=== PATIENT | female | born 1990 | race Caucasian/White ===

== ENCOUNTER 2018-02-01 22:22 | Emergency (ER) | payer BC ==
--- NOTE | 2018-02-01 22:41 | EDM.PDOC ---
ED HPI GENERAL MEDICAL PROBLEM - General Chief Complaint: Lower Extremity Injury/Pain Stated Complaint: POSS ANKLE INJURY Time Seen by Provider: 02/01/18 22:28 Source of Information: Reports: Patient History Limitations: Reports: No Limitations - History of Present Illness INITIAL COMMENTS - FREE TEXT/NARRATIVE: 27-year-old female presents for evaluation and treatment of an injury to the right ankle. Patient reports that she was at softball this evening. States that she was running the bases when she stepped on the base and inverted her ankle. Primarily complaining of pain to the right lateral malleolus as well as swelling. States it initially felt numb and tingly but this has resolved. Currently having some discomfort but denies any pain medication. She states she felt a pop when the injury occurred. Onset: Today, Sudden Location: Reports: Lower Extremity, Right Right Ankle Pain Score (Numeric/FACES): 1 - Related Data Allergies Allergy/AdvReac Type Severity Reaction Status Date / Time No Known Allergies Allergy Verified 05/07/14 07:42 Home Meds: Home Meds Acetaminophen/HYDROcodone [[place] 325-5 MG] 1 tab PO Q6H PRN #7 tablet 02/01/18 [ Rx] Past Medical History HEENT History: Reports: Impaired Vision Other HEENT History: wears corrective lenses [employer] History: Reports: Polycystic Ovaries - Past Surgical History HEENT Surgical History: Reports: None Social & Family History - Tobacco Use Smoking Status *Q: Never Smoker - Caffeine Use Caffeine Use: Reports: Soda - Recreational Drug Use Recreational Drug Use: No Review of Systems - Review of Systems Review Of Systems: See Below Musculoskeletal: Reports: Joint Pain (right ankle), Joint Swelling (right lateral ankle) Skin: Denies: Pruritis, Erythema, Wound Neurological: Denies: Numbness (initally now resolved), Tingling (initally now resolved) ED EXAM, GENERAL - Physical Exam Exam: See Below Exam Limited By: No Limitations General Appearance: Alert, WD/WN, No Apparent Distress Respiratory/Chest: No Respiratory Distress Cardiovascular: Normal Peripheral Pulses, Regular Rate, Rhythm Peripheral Pulses: 3+: Posterior Tibial (L), Posterior Tibial (R), Dorsalis Pedis (L), Dorsalis Pedis (R) Extremities: Normal Capillary Refill, Joint Swelling (right lateral malleolus), Other (right lateral malleolus both proximal and distal tenderness to palpation ; no tenderness across the dorsal right foot). No: Increased Warmth, Redness Neurological: Alert, Oriented, Normal Cognition Psychiatric: Normal Affect, Normal Mood Skin Exam: Warm, Dry, Normal Color. No: Ecchymosis, Increased Warmth Course - Vital Signs Last Recorded V/S: Last Vital Signs Temp 97.9 F 02/01/18 22:27 Pulse 105 H 02/01/18 22:27 Resp 18 02/01/18 22:27 BP 129/86 02/01/18 22:27 Pulse Ox 99 02/01/18 22:27 - Orders/Labs/Meds Orders: Active Orders 24 hr Category Date Time Status Ankle Min 3V Rt [CR] Stat Exams 02/01/18 22:35 Ordered Meds: Medications Discontinued Medications Generic Name Dose Route Start Last Admin Trade Name Freq PRN Reason Stop Dose Admin Hydrocodone Bitart/Acetaminophen 1 tab 02/01/18 22:53 02/01/18 22:59 [place] 325-5 Mg PO 02/01/18 22:54 1 tab ONETIME ONE Administration - Radiology Interpretation Free Text/Narrative:: X-ray of the right ankle shows no acute fractures or dislocations. Reviewed by myself and Dr. Wilkins. - Re-Assessments/Exams Free Text/Narrative Re-Assessment/Exam: 02/01/18 22:55 I reviewed the x-ray results with the patient. Reports that the pain is worsening. I will give her [place] here in the ED tonight. Follow-up with orthopedics within 1 week For recheck of the ankle sprain. She was advised it is possible she could have a ligamentous injury. Follow-up with ortho for further evaluation. Offered splint vs. Frankie bandage. She would like to use an FRANKIE bandage and crutches. Discharge instructions as documented. Departure - Departure Time of Disposition: 22:56 Disposition: Home, Self-Care 01 Condition: Fair Clinical Impression: Right ankle sprain - Discharge Information Prescriptions: Acetaminophen/HYDROcodone [[place] 325-5 MG] 1 tab PO Q6H PRN #7 tablet PRN Reason: Pain Referrals: PCP,None [Primary Care Provider] - Lazarus Acevedo MD [Physician] - Forms: ED Department Discharge Additional Instructions: Use the crutches and Frankie bandage at all time for rest and for compression. Off the foot 1 week until seen by orthopedics. Follow-up with orthopedics within [address] Acevedo at [facility]. Call [phone] to schedule with him. [id number] Tylenol or Motrin seen for pain relief. Do not take more than 4 g of Tylenol from all sources in 1 day. Don't take more than 3200 mg of ibuprofen from all sources in 1 day. For pain not relieved by Tylenol or Motrin you may take [place] one tablet every 6 hours. [place] is habit-forming, take as few of these as needed to control your pain. You were given medication ER that can affect you ability to drive and operate machinery. Do not drive or operate machinery within 12 hours of taking prescription narcotic pain medication. Ice the ankle 4 to 5 times a day for 10-15 minutes. Elevate, as you able to to help with the swelling. Please return the ER if your symptoms change or worsen. - My Orders Last 24 Hours: My Active Orders 02/01/18 22:35 Ankle Min 3V Rt [CR] Stat - Assessment/Plan Last 24 Hours: My Active Orders 02/01/18 22:35 Ankle Min 3V Rt [CR] Stat
[2018-02-01] MEDS ORDERED: Acetaminophen/HYDROcodone 325-5 MG Tab PO ONE (22:53)
--- NOTE | 2018-02-02 07:01 | CR ---
Right ankle: Four views of the right ankle were obtained. Comparison: No previous study. Soft tissue swelling is identified. Ankle mortise is symmetric. No fracture, dislocation or other bony abnormality is seen. Impression: 1. Soft tissue swelling. No bony abnormality is identified on right ankle exam. Diagnostic code #2
== END 2018-02-01 23:05 | disposition home or self-care (01) ==
LOC: JD.ED 22:22
DX: S93.401A Sprain of unspecified ligament of right ankle, initial encounter (principal); X50.9XXA Other and unspecified overexertion or strenuous movements or postures, initial encounter; Y93.64 Activity, baseball
CPT/HCPCS: 73610; 99283; A9270

== ENCOUNTER 2021-01-12 04:56 | Inpatient (IN) | payer OTHER ==
--- NOTE | 2021-01-11 21:40 | PCM.LDHP ---
L&D History of Present Illness - General Date of Service: 01/12/21 Admit Problem/Dx: Admission Diagnosis/Problem Admission Diagnosis/Problem 01/11/21 21:31 Elvira is a 30-year-old 1 para 0 white female admitted at 39-4/7 weeks gestational age with an BENJAMIN of 01/15/2021 for an attempt at external cephalic version with possible induction of labor if version is successful and a primary section if version is unsuccessful. Source of Information: Patient History Limitations: Reports: No Limitations - History of Present Illness Introduction:: Elvira is a 30-year-old 1 para 0 white female admitted at 39-4/7 weeks gestational age with an BENJAMIN of 01/15/2021 for an attempt at external cephalic version with possible induction of labor if version is successful and a primary section if version is unsuccessful. The procedure, risk, benefits, limitations, follow-up and alternatives of care including vaginal breech de livery and primary section discussed in detail with the patient. She appears understand and wished to proceed with an attempt at version. 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 24 to 26 days. LMP 04/10/2020 was certain. Not using any control at the time of conception. She denies any STIs or abnormal Pap smears. course: Patient was seen early in the and ultrasound correlated very well with her dates. She has had 3 other ultrasounds that support her LMP dating. Initial anatomy showed some mild renal concerns but these resolved with time. She is group B strep negative. Her blood is a negative. Patient declined prequel noninvasive screen. She plans to breast-feed. Patient's first visit was very early in . She w as seen on a regular basis. She made appropriate weight gain from approximately 208.8 pounds up to 241.2 pounds. Her blood pressure and vital signs were stable throughout the course. Her fundal height growth was appropriate. Laboratory testing shows blood to be A negative with a negative antibody screen. blood type is O- therefore patient not a candidate for RhoGam. Her first laboratory testing showed hemoglobin of 13.9 platelets 334,000. HIV, hepatitis B, chlamydia and gonorrhea assays were all negative. Second trimester labs showed hemoglobin 12.8 with platelets of 305,000. Her 1 hour GTT is 126normal. Group B strep screen was negative. Allergies: Seasonal allergies environmental allergies. No drug related allergies noted. Medications: 1. vitamins 1 p.o. daily Past medical history: Unremarkable Past surgical history: 1. Tailbone surgery with skin grafting sounds like a pilonidal cyst. Patient unsure. 2. [place] tooth extraction Family history: Father and when patient was age 6. Cause of unknown. Mother is alive but with hypertension. 3 brothers 1 sister is alive and well. Maternal grandmother secondary to blood clots. Maternal grandfather secondary to Parkinson's disease. Paternal grandmother secondary to Alzheimer's. Paternal grandfather cause unknown. No anesthesia, bleeding, blood clotting problems noted in the family. Social history: Patient is . is [place]. Patient is a college graduate works in [employer]. She does not use any significant also alcohol, drugs or tobacco. She and her live in [place]. Review of systems: In general patient has no complaints. Baby's been active. On last evaluation clinic she is noted to have breech presenting child and she notes that she is getting kicked more in the lower part of her abdomen. Skin: Negative Lungs: No infectious symptoms or shortness of breath Cardiovascular: No chest pain or exercise intolerance Breasts: No lumps, changes in size, pain, dimpling, discharge or axillary or supraclavicular concerns. Changes associated noted. GI: Negative : changes. Musculoskeletal: Negative Neurological: Negative In general the patient is well-developed, well-nourished, pleasant female of stated age in no acute distress. Patient's weight gain has been from 208.8 up to 241.2 pounds. Vital signs been stable. Fundal height growth has been normal. Skin is warm dry without lesions. HEENT, neck and back within normal limits. Lungs are clear with good breath sounds in all lung [place]. Cardiovascular exam shows regular and rhythm without murmurs. Breast exam was done at first annual visit and is not repeated at this time as i t was normal at that time. Patient plans to breast-feed. Abdomen is protuberant with . Fundal height consistent with term . Genital exam on last evaluation shows cervix to be 2 cm, 5% effaced, midposition, soft, -3 station, breech presentation. Extremities and neurological exam are grossly within normal limits. - Related Data Allergies/Adverse Reactions: Allergies Allergy/AdvReac Type Severity Reaction Status Date / Time No Known Allergies Allergy Verified 05/07/14 07:42 Home Medications: Home Meds Calcium Carbonate [Calcium] 500 mg PO DAILY 01/09/21 [History] Pnv No.95/Ferrous Fum/Folic AC [ Tablet] 1 each PO DAILY 01/09/21 [History] Past Medical History HEENT History: Reports: Impaired Vision Other HEENT History: wears corrective lenses LEATHER SCRUBBER History: Reports: Polycystic Ovaries - Past Surgical History HEENT Surgical History: Reports: None Social & Family History - Caffeine Use Caffeine Use: Reports: Soda H&P Review of Systems - Review of Systems: Review Of Systems: See Below L&D Exam - Exam Exam: See Below - Problem List (1) 39 weeks gestation of SNOMED Code(s): 29523497 ICD Code: Z3A.39 - 39 WEEKS GESTATION OF Status: Acute (2) Gilles breech presentation SNOMED Code(s): 56058622 ICD Code: O32.1XX0 - MATERNAL CARE FOR BREECH PRESENTATION, UNSP Status: Acute Problem List Initiated/Reviewed/Updated: Yes Assessment/Plan Comment:: 1.Elvira is a 30-year-old 1 para 0 white female admitted for gilles breech presenting infant at 39-4/7 weeks gestational age with an BENJAMIN of 01/15/2021 for an attempt at external cephalic version with possible induction of labor if version is successful and a primary section if version is unsuccessful. The procedure of extrasystolic version, its risks, benefits, limitations, follow-up and possible need for section if unsuccessful all discussed with patient. She appears understand and wishes to proceed. 2. Group B strep screen negative 3. Patient plans to breast-feed 4. Patient is okay with epidural but would like to try natural labor if version is successfully performed 5. Patient is Rh- with a negative blood. is O- therefore she is not a candidate for Rh immunoglobulin therapy during . Plan: 1. Patient will be admitted on the sprayer automatic spray machine hours of 01/12/2021 for attempt at external cephalic version. If successful will proceed with induction of labor if unsuccessful will proceed with primary section. Both options have been discussed in detail with patient. She appears to understand and would like to proceed. 2. Admission labs consist of CBC, type and screen, urine analysis, RPR, Covid19 testing. 3. If version is successful we will proceed with Pitocin induction of labor. 4. If version unsuccessful proceed with primary section. This is discussed in detail with patient. 5. If we proceed to section would place SCDs for DVT prophylaxis and give Ancef 2 g IV preop for infection prophylaxis. 6. Support breast-feeding decision 7. Obtain cord blood. Patient however is Rh- therefore Rh immunoglobulin is not indicated
[~2021-01-12 04:56] MED LIST: Sodium Chloride 0.9% 10 ML Syringe FLUSH PRN
[2021-01-12] MEDS: Lactated Ringers 1,000 ML IV SCH ×3 (05:40→07:49)
[2021-01-12] MEDS ORDERED: Terbutaline 1 MG/ML SDV IV ONE (05:53)
[2021-01-12] MEDS ORDERED: Metoclopramide 10 MG/2 ML SDV IVPUSH ONE ×2 (06:00→08:00)
[2021-01-12] MEDS ORDERED: Citric Acid/Sodium Citrate Solution 30 ML Cup PO ONE ×2 (06:00→08:00)
[2021-01-12] MEDS ORDERED: ceFAZolin 2 GM in Premix Bag 1 BAG IV ONE ×2 (06:30→08:00)
[2021-01-12] MEDS ORDERED: Morphine PF 10 MG/10 ML SDV ONE (07:24)
[2021-01-12] MEDS ORDERED: Lactated Ringers 1,000 ML ONE ×2 (07:24→07:47)
[2021-01-12] MEDS ORDERED: Ondansetron 4 MG/2 ML SDV ONE (07:24)
[2021-01-12] MEDS ORDERED: Ketorolac 30 MG/ML SDV ONE (07:24)
[2021-01-12] MEDS ORDERED: Oxytocin 10 Units/1 ML SDV ONE ×2 (07:25→08:04)
[2021-01-12] MEDS ORDERED: Metoclopramide 10 MG/2 ML SDV ONE (07:30)
[2021-01-12] MEDS ORDERED: Oxytocin/Lactated Ringers 10 UNIT/1,000 ML BAG IV SCH (07:30)
[2021-01-12] MEDS ORDERED: Bupivacaine 0.5% 30 ML SDV ONE (07:30)
[2021-01-12] MEDS ORDERED: Citric Acid/Sodium Citrate Solution 30 ML Cup ONE (07:30)
--- NOTE | 2021-01-12 07:41 | PCM.PREANE ---
Preanesthetic Assessment - Anesthesia/Transfusion/Family Hx Anesthesia History: Prior Anesthesia Without Reaction Family History of Anesthesia Reaction: No Transfusion History: No Prior Transfusion(s) - Review of Systems General: No Symptoms Cardiovascular: No Symptoms Gastrointestinal: Other (heartburn with ) Neurological: No Symptoms Other: Reports: None - Physical Assessment NPO Status Date: 01/11/21 NPO Status Time: 22:30 Vital Signs: Last Vital Signs Temp 36.8 C 01/12/21 05:17 Pulse 85 01/12/21 05:17 Resp 16 01/12/21 05:17 BP 123/83 01/12/21 05:17 Pulse Ox 99 01/12/21 05:17 Height: 1.73 m Weight: 108.862 kg ASA Class: 2 Mental Status: Alert & Oriented x3 Airway Class: Mallampati = 2 Dentition: Reports: Normal Dentition Thyro-Mental Finger Breadths: 3 Mouth Opening Finger Breadths: 3 ROM/Head Extension: Full Lungs: Clear to Auscultation, Normal Respiratory Effort Cardiovascular: Regular Rate, Regular Rhythm - Lab Values: Laboratory Last Values WBC 10.73 K/mm3 (3.98-10.04) H 01/12/21 05:46 RBC 3.77 M/mm3 (3.98-5.22) L 01/12/21 05:46 Hgb 12.7 gm/dl (11.2-15.7) 01/12/21 05:46 Hct 36.8 % (34.1-44.9) 01/12/21 05:46 MCV 97.6 fl (79.4-94.8) H 01/12/21 05:46 MCH 33.7 pg (25.6-32.2) H 01/12/21 05:46 MCHC 34.5 g/dl (32.2-35.5) 01/12/21 05:46 RDW Std Deviation 42.5 fL (36.4-46.3) 01/12/21 05:46 Plt Count 260 K/mm3 (182-369) 01/12/21 05:46 MPV 9.5 fl (9.4-12.3) 01/12/21 05:46 Neut % (Auto) 64.4 % (34.0-71.1) 01/12/21 05:46 Lymph % (Auto) 25.6 % (19.3-51.7) 01/12/21 05:46 [place] % (Auto) 7.9 % (4.7-12.5) 01/12/21 05:46 Eos % (Auto) 1.6 (0.7-5.8) 01/12/21 05:46 Baso % (Auto) 0.2 % (0.1-1.2) 01/12/21 05:46 Neut # (Auto) 6.91 K/mm3 (1.56-6.13) H 01/12/21 05:46 Lymph # (Auto) 2.75 K/mm3 (1.18-3.74) 01/12/21 05:46 [place] # (Auto) 0.85 K/mm3 (0.24-0.36) H 01/12/21 05:46 Eos # (Auto) 0.17 K/mm3 (0.04-0.36) 01/12/21 05:46 Baso # (Auto) 0.02 K/mm3 (0.01-0.08) 01/12/21 05:46 SARS-CoV-2 RNA (VIJAY) Negative (NEGATIVE) 01/12/21 05:30 Blood Type A NEGATIVE 01/12/21 05:46 Gel Antibody Screen Negative 01/12/21 05:46 - Allergies Allergies/Adverse Reactions: Allergies Allergy/AdvReac Type Severity Reaction Status Date / Time No Known Allergies Allergy Verified 05/07/14 07:42 - Blood Blood Available: No Product(s) Available: None - Anesthesia Plan Pre-Op Medication Ordered: None - Acknowledgements Anesthesia Type Planned: Spinal Pt an Appropriate Candidate for the Planned Anesthesia: Yes Alternatives and Risks of Anesthesia Discussed w Pt/Guardian: Yes Pt/Guardian Understands and Agrees with Anesthesia Plan: Yes PreAnesthesia Questionnaire HEENT History: Reports: Impaired Vision Other HEENT History: wears corrective lenses Cardiovascular History: Reports: None Respiratory History: Reports: None Gastrointestinal History: Reports: GERD Genitourinary History: Reports: None MOLD SHIFTER History: Reports: Polycystic Ovaries, Musculoskeletal History: Reports: None Neurological History: Reports: None Psychiatric History: Reports: None Endocrine/Metabolic History: Reports: None Hematologic History: Reports: None Immunologic History: Reports: None Oncologic (Cancer) History: Reports: None Dermatologic History: Reports: None - Infectious Disease History Infectious Disease History: Reports: None - Past Surgical History Head Surgeries/Procedures: Reports: None HEENT Surgical History: Reports: None Cardiovascular Surgical History: Reports: None Respiratory Surgical History: Reports: None GI Surgical History: Reports: None Female Surgical History: Reports: None Endocrine Surgical History: Reports: None Neurological Surgical History: Reports: None Musculoskeletal Surgical History: Reports: Other (See Below) Other Musculoskeletal Surgeries/Procedures:: pyelonidal cyst Oncologic Surgical History: Reports: None Dermatological Surgical History: Reports: None - SUBSTANCE USE Tobacco Use Status *Q: Never Tobacco User Second Hand Smoke Exposure: No Recreational Drug Use History: No - HOME MEDS Home Medications: Home Meds Calcium Carbonate [Calcium] 500 mg PO DAILY 01/09/21 [History] Pnv No.95/Ferrous Fum/Folic AC [ Tablet] 1 each PO DAILY 01/09/21 [History] - CURRENT (IN HOUSE) MEDS Current Meds: Current Medications Citric Acid/Sodium Citrate (Citric Acid/Sodium Citrate Solution 30 Ml Cup) 30 ml PO ONETIME ONE Stop: 01/12/21 07:32 Oxytocin/Lactated Ringer's (Pitocin In Lr 10 Units/1,000 Ml) 10 unit in 1,000 mls @ 100 mls/hr IV ASDIRECTED ELIOT; Protocol Lactated Ringer's (Ringers, Lactated) 1,000 mls @ 125 mls/hr IV ASDIRECTED ELIOT Last Admin: 01/12/21 07:27 Dose: 999 mls/hr Documented by: Cefazolin Sodium/Dextrose 2 gm (/ Premix) 50 mls @ 100 mls/hr IV ONETIME ONE Stop: 01/12/21 08:00 Metoclopramide HCl (Metoclopramide 10 Mg/2 Ml Sdv) 10 mg IVPUSH ONETIME ONE Stop: 01/12/21 07:32 Sodium Chloride (Sodium Chloride 0.9% 10 Ml Syringe) 10 ml FLUSH ASDIRECTED PRN PRN Reason: Keep Vein Open Discontinued Medications Bupivacaine HCl (Bupivacaine 0.5% 30 Ml Sdv) Confirm Administered Dose 30 ml .ROUTE .STK-MED ONE Stop: 01/12/21 07:31 Citric Acid/Sodium Citrate (Citric Acid/Sodium Citrate Solution 30 Ml Cup) 30 ml PO ONETIME ONE Stop: 01/12/21 06:01 Last Admin: 01/12/21 07:35 Dose: 30 ml Documented by: Citric Acid/Sodium Citrate (Citric Acid/Sodium Citrate Solution 30 Ml Cup) Confirm Administered Dose 30 ml .ROUTE .STK-MED ONE Stop: 01/12/21 07:31 Cefazolin Sodium/Dextrose 2 gm (/ Premix) 50 mls @ 100 mls/hr IV ONETIME ONE Stop: 01/12/21 06:59 Lactated Ringer's (Ringers, Lactated) Confirm Administered Dose 1,000 mls @ as directed .ROUTE .[facility]-MED ONE Stop: 01/12/21 07:25 Ketorolac Tromethamine (Ketorolac 30 Mg/Ml Sdv) Confirm Administered Dose 30 mg .ROUTE .[facility]-MED ONE Stop: 01/12/21 07:25 Metoclopramide HCl (Metoclopramide 10 Mg/2 Ml Sdv) 10 mg IVPUSH ONETIME ONE Stop: 01/12/21 06:01 Last Admin: 01/12/21 07:35 Dose: 10 mg Documented by: Metoclopramide HCl (Metoclopramide 10 Mg/2 Ml Sdv) Confirm Administered Dose 10 mg .ROUTE .ST-MED ONE Stop: 01/12/21 07:31 Last Admin: 01/12/21 07:39 Dose: 10 mg Documented by: Morphine Sulfate (Morphine Pf 10 Mg/10 Ml Sdv) Confirm Administered Dose 10 mg .ROUTE .STK-MED ONE Stop: 01/12/21 07:25 Ondansetron HCl (Ondansetron 4 Mg/2 Ml Sdv) Confirm Administered Dose 4 mg .ROUTE .ST-MED ONE Stop: 01/12/21 07:25 Oxytocin (Oxytocin 10 Units/1 Ml Sdv) Confirm Administered Dose 10 unit .ROUTE .ST-MED ONE Stop: 01/12/21 07:26 Terbutaline Sulfate (Terbutaline 1 Mg/Ml Sdv) 0.25 mg IV ONETIME ONE Stop: 01/12/21 05:54 Last Admin: 01/12/21 07:10 Dose: 0.25 mg Documented by:
--- NOTE | 2021-01-12 07:57 | PCM.SN.2 ---
- Free Text/Narrative Note: Procedure note: Patient was admitted to L&D on observation status. Discussion held with patient as to breech presentation which appeared to be gilles breech in nature, alternatives of care including attempt at turning the baby was external cephalic version. Patient decided on external cephalic version and attempt was made. Consent was signed prior to this for version and for . Preoperative labs were obtained. Active and patient is showing no signs of this. Patient was administered short period time was given to allow medication to become effective. Patient had a slight increase in her heart rate due to medication. Attempt was then made under ultrasound guidance to return the baby. His back was to the patient's left head was in the right upper quadrant. Using routine external cephalic version maneuvers attempt was made to turn the baby. This however was unsuccessful. Patient tolerated this reasonably well. During the course of the procedure heart tones were assessed and were found to be normal on every evaluation. monitor was then placed and heart tones were found to be normal. Patient was advised to proceed with section which will be accomplished at this time. Please see admission history and physical for details otherwise.
[2021-01-12] MEDS ORDERED: ePHEDrine 50 MG/ML SDV ONE (08:23)
--- NOTE | 2021-01-12 08:55 | PCM.POSTAN ---
POST ANESTHESIA ASSESSMENT - MENTAL STATUS Mental Status: Alert, Oriented - VITAL SIGNS Vital Signs: Last Vital Signs Temp 36.8 C 01/12/21 05:17 Pulse 85 01/12/21 05:17 Resp 16 01/12/21 05:17 BP 123/83 01/12/21 05:17 Pulse Ox 99 01/12/21 05:17 - RESPIRATORY Respiratory Status: Respiratory Rate WNL, Airway Patent, O2 Saturation Stable - CARDIOVASCULAR CV Status: Pulse Rate WNL, Blood Pressure Stable - GASTROINTESTINAL GI Status: No Symptoms - PAIN Pain Score: 0 - POST OP HYDRATION Hydration Status: Adequate & Stable
[2021-01-12] MEDS ORDERED: Ondansetron 4 MG/2 ML SDV IVPUSH PRN (08:56)
--- NOTE | 2021-01-12 09:09 | PCM.OPNOTE ---
- General Post-Op/Procedure Note Date of Surgery/Procedure: 01/12/21 Operative Procedure(s): Primary low uterine segment transverse section through Pfannenstiel skin incision Findings: Uterus tubes ovaries and peritoneal cavity consistent with normal term . Baby in gilles breech presentation. Amniotic fluid clear. Cervixdilated to 2 cm to allow for adequate egress of blood. Pre Op Diagnosis: 1. 40-week intrauterine , gilles breech presen tationsuccessful attempt at external cephalic version Post-Op Diagnosis: Same with delivery of a 6 pound 6 ounce (2900 g) female with Apgars of 6 and 9 at 0819 hrs. on 01/12/2021. Anesthesia Technique: Spinal Other Anesthesia Type: Marcaine 0.5% - 20 cc totallocal Primary Surgeon: Juno Zepeda Secondary Surgeon: Teddy Farias Anesthesia Provider: Kalee Vazquez Reason Deicer Kit Assembler Was Necessary: Retraction, assistance, patient safety, quality of care. Fluid Replacement, Intraop: 1,800 Output, Urine Amount: 200 EBL in mLs: 800 Drain/Tube Comments:: Indwelling bladder catheter Complications: None Condition: Good Free Text/Narrative:: Surgery duration: 28 minutes Surgery duration: Procedure: The patient is appropriately consented. Patient was transferred to the room and placed in a sitting position. Spinal anesthesia was administered. After confirmation of adequate anesthesia patient was placed in a supine position with a wedge under her right side to facilitate left lateral positioning. The patient was prepped and draped in usual fashion after Amaro catheter was already placed . The anesthetic was checked and found to be adequate. 20 mL of Marcaine 0.5% was injected locally in the Pfannenstiel incision site. The Pfannenstiel skin incision was then made and carried down through skin, subcutaneous and fascial layers. The fascia was then undermined superiorly and inferiorly to allow for adequate operating room. The recti muscles midline and preperitoneal fat was bluntly dissected. Peritoneal cavity was entered longitudinally. The vesicouterine peritoneum was then incised transversely and bladder flap was developed. Myometrium was incised transversely to the level of the amniotic sac. This incision was extended bilaterally in a blunt fashion. The amniotic sac was then ruptured resulting in clear amniotic fluid. A hand is placed in the low uterine segment and the baby's breech was brought forth through the incision. The baby was completely delivered using fundal pressure and complete breech extraction technique in a routine fashion. The nose and mouth were bulb suctioned. Baby's cord was clamped x2 cut and baby was handed off to attending professor of practice Dr Duong. Placenta was expre ssed after cord blood was obtained. Uterus was then exteriorized to allow for easier closure. The cervix was assessed and found to be dilated adequately to allow egress of blood. The uterus was closed in 2 layers. The first layer a running locked suture of 0 Monocryl, the second layer a running locked vertical mattress suture of 0 Monocryl. 2 [id number] sutures placed at right and and one at the left end of the uterine incision to control 2 bleeders. Hemostasis confirmed at this time. Sponge instrument needle counts are correct. The uterus was returned to the abdominal cavity and lateral gutters were cleared of blood. Once again sponge needle counts are correct. The anterior abdominal wall was closed with a #1 PDS suture from angle to angle. The subcutaneous area was found to be free of any bleeders. interrupted sutures of 3-0 Monocryl were used to reapproximate the subcutaneous layer. Skin was closed with a running subcuticular stitch of 3-0 Monocryl in a vertical mattress suture fashion using a Jorge needle. Prineo mesh/glue was then applied to further approximate the incision. It should be noted that patient received 2 g of Ancef preoperatively for infection prophylaxis and had Pitocin infused after delivery of the placenta to facilitate uterine contraction. She also had sequential compression stockings in place for DVT prophylaxis. Patient was discharged from the operating room in satisfactory condition.
[2021-01-12] MEDS ORDERED: Acetaminophen/oxyCODONE 325-5 MG Tab PO PRN (09:36)
[2021-01-12] MEDS ORDERED: ePHEDrine 50 MG/ML SDV IVPUSH PRN (09:36)
[2021-01-12] MEDS ORDERED: Naloxone 0.4 MG/ML SDV IVPUSH PRN (09:36)
[2021-01-12] MEDS ORDERED: Ondansetron 4 MG/2 ML SDV IV PRN (09:36)
[2021-01-12] MEDS ORDERED: diphenhydrAMINE 50 MG/ML SDV IVPUSH PRN (09:36)
[2021-01-12] MEDS ORDERED: Dextrose 5%-Lactated Ringers 1,000 ML IV SCH (09:36)
[2021-01-12] MEDS: Prenatal Multivitamin with Calcium/Folic Acid/Iron Tab PO SCH (10:55)
[2021-01-12] MEDS: Simethicone 80 MG Tab.Chew PO SCH ×4 (11:01→22:07)
[2021-01-12] MEDS: Ibuprofen 800 MG Tab PO SCH ×2 (15:57→23:24)
[2021-01-12] MEDS: Docusate Sodium 100 MG Cap PO PRN (22:07)
[2021-01-13] MEDS: Acetaminophen/oxyCODONE 325-5 MG Tab PO PRN (05:02)
[2021-01-13] MEDS: Ibuprofen 800 MG Tab PO SCH ×3 (07:25→22:22)
--- NOTE | 2021-01-13 07:27 | PCM48HPAN ---
Post Anesthesia Note - EVALUATION WITHIN 48HRS OF ANESTHETIC Vital Signs in Normal Range: Yes Patient Participated in Evaluation: Yes Respiratory Function Stable: Yes Airway Patent: Yes Cardiovascular Function Stable: Yes Hydration Status Stable: Yes Pain Control Satisfactory: Yes Nausea and Vomiting Control Satisfactory: Yes Mental Status Recovered: Yes Vital Signs: Last Vital Signs Temp 36.9 C 01/13/21 01:33 Pulse 70 01/13/21 01:33 Resp 16 01/13/21 07:00 BP 113/81 01/13/21 01:33 Pulse Ox 99 01/13/21 07:00 - COMMENTS/OBSERVATIONS Free Text/Narrative:: no anesthesia complications noted
--- NOTE | 2021-01-13 08:56 | PCM.SN.2 ---
- Free Text/Narrative Note: note: Postoperative day #1 Patient is doing well in the period. Minimal lochia, voiding well, ambulated without problems. Nursing without concerns. Patient is afebrile, vital signs are stable Abdomen is flat, soft, uterus is below the umbilicus and is firm and nontender. Incision is dry, intact, Prineo mesh in place. Legs are nontender. Assessment: Postoperative day #1/ recovery going well. Plan: Routine care. Patient be discharged home within the next 24-48 hours.
[2021-01-13] MEDS: Simethicone 80 MG Tab.Chew PO SCH ×4 (10:11→21:22)
[2021-01-13] MEDS: Prenatal Multivitamin with Calcium/Folic Acid/Iron Tab PO SCH (10:11)
[2021-01-13] MEDS: Docusate Sodium 100 MG Cap PO PRN (22:22)
[2021-01-14] MEDS ORDERED: Ondansetron 4 MG Tab.DIS PO PRN (05:55)
[2021-01-14] MEDS: Ibuprofen 800 MG Tab PO SCH (06:05)
[2021-01-14] MEDS: Prenatal Multivitamin with Calcium/Folic Acid/Iron Tab PO SCH (09:02)
[2021-01-14] MEDS: Simethicone 80 MG Tab.Chew PO SCH (09:02)
[2021-01-14] MEDS: Acetaminophen/oxyCODONE 325-5 MG Tab PO PRN (09:07)
--- NOTE | 2021-01-14 09:30 | PCM.DCSUM1 ---
Discharge Summary - Hospital Course Free Text/Narrative:: Elvira is a 30-year-old 1 now para 1-0-0-1 white female who presented to labor delivery on 01/13/2021 for an attempt at external cephalic version. Baby was found to be in gilles breech presentation. The attempt at version was unsuccessful. She was then taken to section for primary low uterine segment transverse section through Pfannenstiel skin incision. At the time of surgery findings included: Uterus tubes ovaries and peritoneal cavity consistent with normal term . Baby in gillse breech presentation. Amniotic fluid clear. Cervixdilated to 2 cm to allow for adequate egress of blood. Pre Op Diagnosis: 1. 40-week intrauterine , gilles breech presentationsuccessful attempt at external cephalic version Post-Op Diagnosis: Same with delivery of a 6 pound 6 ounce (2900 g) female infant with Apgars of 6 and 9 at 0819 hrs. on 01/12/2021. Anesthesia Technique: Spinal Postoperatively pain is controlled initially with Duramorph through the spinal block along with ibuprofen. It was continued with ibuprofen and Percocet starting on day 1. She is made good bowel, bladder and ambulatory activity. She is nursing without problems. Vital signs have been stable. Lochia is minimal. She is voiding well and ambulating well. She is desiring discharge home on postoperative day #2. Condition: Good Diagnosis: Stroke: No - Discharge Data Discharge Date: 01/14/21 Discharge Disposition: Home, Self-Care 01 Condition: Good - Referral to Home Health Primary Care Physician: Juno Zepeda MD - Discharge Diagnosis/Problem(s) (1) 39 weeks gestation of SNOMED Code(s): 17929313 ICD Code: Z3A.39 - 39 WEEKS GESTATION OF Status: Acute Current Visit: No (2) Gilles breech presentation SNOMED Code(s): 81302764 ICD Code: O32.1XX0 - MATERNAL CARE FOR BREECH PRESENTATION, UNSP Status: Acute Current Visit: No - Patient Summary/Data Operative Procedure(s) Performed: Primary low uterine segment transverse section through Pfannenstiel skin incision - Patient Instructions Diet: Regular Diet as Tolerated (Nursing diet with increased calories and calcium as recommended) Activity: As Tolerated (No intercourse or tampons until bleeding resolves.) Driving: Do Not Drive (Patient is asked not to drive or lift anything heavier than 15 pounds for the next 10 days.) Showering/Bathing: May Shower Wound/Incision Care: Keep Operative Site/Wound Site Clean and Dry Notify Provider of: Fever, Increased Pain, Swelling and Redness, Drainage, Nausea and/or Vomiting - Discharge Plan Home Medications: Home Meds Pnv No.95/Ferrous Fum/Folic AC [ Tablet] 1 each PO DAILY 01/09/21 [History] Acetaminophen/oxyCODONE [Percocet 325-5 MG] 2 tab PO Q4H PRN tablet 01/14/21 [Rx] Ibuprofen [Motrin] 800 mg PO Q8H tablet 01/14/21 [Rx] Referrals: Juno Zepeda MD [Primary Care Provider] - (Return to [facility] weeks.) - Discharge Summary/Plan Comment DC Time >30 min.: No Discharge Summary/Plan Comment: Discharge instructions: 1. Discharge home 2. Diet, activity and follow-up discussed with patient. Recommend nursing diet with increased calories and calcium. 3. Precautions given concern increased pain, bleeding, temperature, signs/symptoms of DVT/PE. 4. Medications per home medication was printed, discussed with and given to the patient. 5. Return to clinic-Dr. Zepeda[facility] in 2 weeks. Diagnosis: 1. Term -Gilles breechunsuccessful attempt at version-delivered by primary low uterine segment transverse section through Pfannenstiel skin incision under spinal block on 01/12/2021 Condition: Good - Patient Data Vitals - Most Recent: Last Vital Signs Temp 36.7 C 01/14/21 03:33 Pulse 73 01/14/21 03:33 Resp 16 01/14/21 03:33 BP 144/86 H 01/14/21 03:33 Pulse Ox 97 01/14/21 03:33 Weight - Most Recent: 108.862 kg I&O - Last 24 hours: Intake & Output 01/13/21 01/14/21 01/14/21 22:59 06:59 14:59 Intake Total 440 Balance 440 Med Orders - Current: Current Medications Diphenhydramine HCl (Diphenhydramine 50 Mg/Ml Sdv) 25 mg IVPUSH Q6H PRN PRN Reason: Itching or Nausea Docusate Sodium (Docusate Sodium 100 Mg Cap) 100 mg PO Q12H PRN PRN Reason: Constipation Last Admin: 01/13/21 22:22 Dose: 100 mg Documented by: Ephedrine Sulfate (Ephedrine 50 Mg/Ml Sdv) 5 mg IVPUSH SEECOMMENT PRN PRN Reason: Other Ibuprofen (Ibuprofen 800 Mg Tab) 800 mg PO Q8H [facility] Last Admin: 01/14/21 06:05 Dose: 800 mg Documented by: Naloxone HCl (Naloxone 0.4 Mg/Ml Sdv) 0.1 mg IVPUSH SEECOMMENT PRN PRN Reason: Respiratory Depression Ondansetron HCl (Ondansetron 4 Mg/2 Ml Sdv) 4 mg IVPUSH ONETIME PRN PRN Reason: Nausea/Vomiting Ondansetron HCl (Ondansetron 4 Mg/2 Ml Sdv) 4 mg IV Q4H PRN PRN Reason: Nausea/Vomiting Ondansetron HCl (Ondansetron 4 Mg Tab.Dis) 4 mg PO Q4H PRN PRN Reason: Nausea/Vomiting Last Admin: 01/14/21 06:06 Dose: 4 mg Documented by: Oxycodone/Acetaminophen (Acetaminophen/Oxycodone 325-5 Mg Tab) 1 tab PO Q4H PRN PRN Reason: Pain (moderate 4-6) Last Admin: 01/14/21 09:07 Dose: 1 tab Documented by: Oxycodone/Acetaminophen (Acetaminophen/Oxycodone 325-5 Mg Tab) 2 tab PO Q4H PRN PRN Reason: Pain (severe 7-10) Prenat Multivit/[place]/Iron/Folic Ac ( Multivitamin With Calcium/Folic Ac id/Iron Tab) 1 each PO DAILY [facility] Last Admin: 01/14/21 09:02 Dose: 1 each Documented by: Simethicone (Simethicone 80 Mg Tab.Chew) 160 mg PO QID [facility] Last Admin: 01/14/21 09:02 Dose: 160 mg Documented by: Discontinued Medications Bupivacaine HCl (Bupivacaine 0.5% 30 Ml Sdv) Confirm Administered Dose 30 ml .ROUTE .STK-MED ONE Stop: 01/12/21 07:31 Last Admin: 01/12/21 09:16 Dose: 30 ml Documented by: Citric Acid/Sodium Citrate (Citric Acid/Sodium Citrate Solution 30 Ml Cup) 30 ml PO ONETIME ONE Stop: 01/12/21 06:01 Last Admin: 01/12/21 07:35 Dose: 30 ml Documented by: Citric Acid/Sodium Citrate (Citric Acid/Sodium Citrate Solution 30 Ml Cup) Confirm Administered Dose 30 ml .ROUTE .STK-MED ONE Stop: 01/12/21 07:31 Last Admin: 01/12/21 09:34 Dose: Not Given Documented by: Citric Acid/Sodium Citrate (Citric Acid/Sodium Citrate Solution 30 Ml Cup) 30 ml PO ONETIME ONE Stop: 01/12/21 08:01 Last Admin: 01/12/21 09:35 Dose: Not Given Documented by: Ephedrine Sulfate (Ephedrine 50 Mg/Ml Sdv) Confirm Administered Dose 50 mg .ROUTE .[facility] ONE Stop: 01/12/21 08:24 Oxytocin/Lactated Ringer's (Pitocin In Lr 10 Units/1,000 Ml) 10 unit in 1,000 mls @ 100 mls/hr IV ASDIRECTED [facility]; Protocol Cefazolin Sodium/Dextrose 2 gm (/ Premix) 50 mls @ 100 mls/hr IV ONETIME ONE Stop: 01/12/21 06:59 Last Admin: 01/12/21 10:59 Dose: Not Given Documented by: Lactated Ringer's (Ringers, Lactated) 1,000 mls @ 125 mls/hr IV ASDIRECTED [facility] Last Admin: 01/12/21 07:49 Dose: 999 mls/hr Documented by: Lactated Ringer's (Ringers, Lactated) Confirm Administered Dose 1,000 mls @ as directed .ROUTE .[facility] ONE Stop: 01/12/21 07:25 Cefazolin Sodium/Dextrose 2 gm (/ Premix) 50 mls @ 100 mls/hr IV ONETIME ONE Stop: 01/12/21 08:29 Last Admin: 01/12/21 11:00 Dose: Not Given Documented by: Lactated Ringer's (Ringers, Lactated) Confirm Administered Dose 1,000 mls @ as directed .ROUTE .[facility] ONE Stop: 01/12/21 07:48 Last Admin: 01/12/21 17:19 Dose: Not Given Documented by: Dextrose/Lactated Ringer's (Dextrose 5%-Lactated Ringers) 1,000 mls @ 125 mls/hr IV ASDIRECTED [facility] Stop: 01/12/21 17:35 Last Admin: 01/12/21 13:17 Dose: 125 mls/hr Documented by: Ketorolac Tromethamine (Ketorolac 30 Mg/Ml Sdv) Confirm Administered Dose 30 mg .ROUTE .[facility] ONE Stop: 01/12/21 07:25 Metoclopramide HCl (Metoclopramide 10 Mg/2 Ml Sdv) 10 mg IVPUSH ONETIME ONE Stop: 01/12/21 06:01 Last Admin: 01/12/21 07:35 Dose: 10 mg Documented by: Metoclopramide HCl (Metoclopramide 10 Mg/2 Ml Sdv) Confirm Administered Dose 10 mg .ROUTE .[facility] ONE Stop: 01/12/21 07:31 Last Admin: 01/12/21 07:39 Dose: 10 mg Documented by: Metoclopramide HCl (Metoclopramide 10 Mg/2 Ml Sdv) 10 mg IVPUSH ONETIME ONE Stop: 01/12/21 08:01 Last Admin: 01/12/21 09:35 Dose: Not Given Documented by: Miscellaneous Medication (Phenylephrine Hcl In 0.9% Nacl 1 Mg/10 Ml Syringe) Confirm Administered Dose 1 mg .ROUTE .[facility] ONE Stop: 01/12/21 08:06 Morphine Sulfate (Morphine Pf 10 Mg/10 Ml Sdv) Confirm Administered Dose 0 mg .ROUTE .[facility] ONE Stop: 01/12/21 07:25 Ondansetron HCl (Ondansetron 4 Mg/2 Ml Sdv) Confirm Administered Dose 4 mg .ROUTE .[facility] ONE Stop: 01/12/21 07:25 Oxytocin (Oxytocin 10 Units/1 Ml Sdv) Confirm Administered Dose 10 unit .ROUTE .[facility] ONE Stop: 01/12/21 07:26 Oxytocin (Oxytocin 10 Units/1 Ml Sdv) Confirm Administered Dose 10 unit .ROUTE .[facility] ONE Stop: 01/12/21 08:05 Sodium Chloride (Sodium Chloride 0.9% 10 Ml Syringe) 10 ml FLUSH ASDIRECTED PRN PRN Reason: Keep Vein Open Terbutaline Sulfate (Terbutaline 1 Mg/Ml Sdv) 0.25 mg IV ONETIME ONE Stop: 01/12/21 05:54 Last Admin: 01/12/21 07:10 Dose: 0.25 mg Documented by:
== END 2021-01-14 11:40 | disposition home or self-care (01) | DRG 788 ==
LOC: JD.OB 04:56 → OBSVTOIN 08:19 → JD.OB 08:19
PROVIDERS: ADMIT Obstetrics & Gynecology; ATTEND Obstetrics & Gynecology
PROC: 10D00Z1 Extraction of Products of Conception, Low, Open Approach (ICD-10-PCS; principal; 2021-01-12)
DX: O32.1XX0 Maternal care for breech presentation, not applicable or unspecified (principal); Z37.0 Single live birth; Z20.822 Contact with and (suspected) exposure to COVID-19; Z3A.40 40 weeks gestation of pregnancy
CPT/HCPCS: 01961; 36415; 59025; 59412; 85025; 86592; 86803; 86850; 86900; 86901; A9270-GY; J1885; J2270; J2370; J2405; J2590; J2765; J3105; J3490; J7120; J7121; U0002

== ENCOUNTER 2022-08-25 19:24 | Inpatient (IN) | payer OTHER ==
[2022-08-25] MEDS ORDERED: Sodium Chloride 0.9% 10 ML Syringe FLUSH PRN (19:49)
[2022-08-25] MEDS ORDERED: Nalbuphine 10 MG/0.5 ML Syringe IVPUSH PRN (19:49)
[2022-08-25] MEDS ORDERED: Oxytocin/Lactated Ringers 10 UNIT/1,000 ML BAG IV SCH (20:00)
[2022-08-25] MEDS: Lactated Ringers 1,000 ML IV SCH (20:56)
[2022-08-25] MEDS: Oxytocin/Lactated Ringers 10 UNIT/1,000 ML BAG IV SCH (20:56)
[2022-08-25] MEDS: Sodium Chloride 0.9% 10 ML Syringe FLUSH SCH (21:40)
[2022-08-26] MEDS: Calcium Carbonate 500 MG Tab.Chew PO PRN ×2 (04:31→15:33)
[2022-08-26] MEDS: Lactated Ringers 1,000 ML IV SCH ×3 (06:42→09:37)
[2022-08-26] MEDS ORDERED: fentaNYL 100 MCG/2 ML SDV EPIDUR PRN (08:27)
[2022-08-26] MEDS ORDERED: ePHEDrine 50 MG/ML SDV IVPUSH PRN (08:27)
[2022-08-26] MEDS ORDERED: Bupivacaine/fentaNYL/NS 100 ML Bag EPIDUR PRN (08:27)
[2022-08-26] MEDS ORDERED: diphenhydrAMINE 50 MG/ML SDV IVPUSH PRN (08:27)
[2022-08-26] MEDS: Sodium Chloride 0.9% 10 ML Syringe FLUSH SCH (10:29)
[2022-08-26] MEDS ORDERED: Ondansetron 4 MG/2 ML SDV IVPUSH ONE (13:31)
[2022-08-26] MEDS: Oxytocin/Lactated Ringers 10 UNIT/1,000 ML BAG IV SCH (15:03)
[2022-08-26] MEDS ORDERED: Benzocaine/Menthol 20%-0.5% Spray 78 GM Cannister TOP PRN (17:49)
[2022-08-26] MEDS ORDERED: Witch Hazel Medicated Pads 40/Jar TOP PRN (17:49)
[2022-08-26] MEDS: Ibuprofen 600 MG Tab PO PRN ×2 (18:19→22:29)
[2022-08-26] MEDS: Docusate Sodium 100 MG Cap PO PRN (18:19)
[2022-08-26] MEDS: Acetaminophen 325 MG Tab PO PRN (20:15)
[2022-08-27] MEDS ORDERED: Phenylephrine HCl In 0.9% NaCl 1 MG/10 ML Vial ONE
[2022-08-27] MEDS ORDERED: Lidocaine 1% 10 ML MDV ONE
[2022-08-27] MEDS: Acetaminophen 325 MG Tab PO PRN ×3 (00:23→16:28)
[2022-08-27] MEDS: Ibuprofen 600 MG Tab PO PRN ×3 (02:29→13:09)
[2022-08-27] MEDS: Docusate Sodium 100 MG Cap PO PRN (06:52)
[2022-08-27] MEDS ORDERED: Prenatal Multivitamin with Calcium/Folic Acid/Iron Tab PO SCH (09:00)
== END 2022-08-27 18:25 | disposition home or self-care (01) | DRG 807 ==
LOC: JD.OBCHECK 19:24 → JD.OB 19:25 → OBSVTOIN 08-26 16:12 → JD.OB 08-26 16:13
PROVIDERS: ADMIT Obstetrics & Gynecology; ATTEND Obstetrics & Gynecology
PROC: 10E0XZZ Delivery of Products of Conception, External Approach (ICD-10-PCS; principal; 2022-08-26)
PROC: 0KQM0ZZ Repair Perineum Muscle, Open Approach (ICD-10-PCS; 2022-08-26)
PROC: 3E033VJ Introduction of Other Hormone into Peripheral Vein, Percutaneous Approach (ICD-10-PCS; 2022-08-26)
PROC: 3E0R3BZ Introduction of Anesthetic Agent into Spinal Canal, Percutaneous Approach (ICD-10-PCS; 2022-08-26)
PROC: 00HU33Z Insertion of Infusion Device into Spinal Canal, Percutaneous Approach (ICD-10-PCS; 2022-08-26)
DX: O34.211 Maternal care for low transverse scar from previous cesarean delivery (principal); Z37.0 Single live birth; Z3A.39 39 weeks gestation of pregnancy; O70.1 Second degree perineal laceration during delivery; O99.62 Diseases of the digestive system complicating childbirth; K21.9 Gastro-esophageal reflux disease without esophagitis
CPT/HCPCS: 36415; 51702; 59025; 59409; 85025; 86592; 86850; 86900; 86901; A9270-GY; J2300; J2405; J2590; J3010; J7120